=== PATIENT | female | born 1955 | race Caucasian/White ===

== ENCOUNTER → 2017-06-07 | Outpatient (CLI) | payer OTHER ==
[~2017-06-07] MED LIST: ADVAIR; ADVAIR 250-501 EACH; ADVAIR HFA115 MCG/21 INH; ADVAIRDISKUS; ALBUTEROL INH; ALBUTEROL INH IH; AMBIEN 10 MG TA10 MG PO; ATIVAN0.5 MG PO; AZITHROMYCIN 2250 MG PO; BROVANA15 MCG/2 M INH; CALCITRATE200 MG PO; CALCIUM; CALCIUM PO; CEFTIN500 MG PO; CLONAZEPAM; CLONAZEPAM 1 MG1 M1 PO; DEXILANT60 MG OR; DOXYCYCLINE 10100 MG PO; DUONEB 2.5-0.5 M3 ML INH; HCTZ; HYDROCHLOROTHIA25 M1 PO; HYDROCHLOROTHIA25 M2 PO; HYDROCODONE-AP1 EAC6 PO; IRON PO; KLOR-CON PO; LEVOTHROID150 MC1 PO; LEXAPRO; LEXAPRO 10 MG T10 MG PO; LISINOPRIL2.5 MG PO; LISINOPRIL20 MG PO; MAGNESIUM OXID200 MG PO; MEDROLDOSEPACK PO; MUCINEX TA600 MG/TA2 PO; NASONEX; NASONEX17 GM; NASONEX17 GM NS; NEXIUM40 MG PO; NORCO 5-325 TA1 EACH PO; PERCOCET 5-3251 EACH PO; PERCOCET PO; POTASSIUM; POTASSIUM20 PO; PREDNISONE 10 M10 M1 PO; PREDNISONE 10 M10 MG PO; PREDNISONE 20 M20 MG PO; PRINIVIL20 MG PO; PROVENTIL; PROVENTIL HFA6.7 G1 INH; PULMICORT0.5 MG/2 M IH; ROBAXIN 750 MG750 M1 PO; SINGULAIR 10 MG10 M1; SINGULAIR 10 MG10 M1 PO; SINGULAIR PO; SYNTHROID; SYNTHROID150 MCG PO; VENTOLIN HFA 1818 GM INH; VENTOLIN HFA INH8 GM PO; VERAPAMIL; VERAPAMIL HCL360 MG PO; VICODIN 5-5001 EACH PO; ZPAK PO
== END ==
LOC: M.RAD 12:21
DX: J45.40 Moderate persistent asthma, uncomplicated (principal); J18.9 Pneumonia, unspecified organism; M89.8X1 Other specified disorders of bone, shoulder

== ENCOUNTER → 2018-02-10 | Outpatient (CLI) | payer OTHER | LOC: M.RAD 16:27 | DX: S22.42XA Multiple fractures of ribs, left side, initial encounter for closed fracture (principal); S42.032A Displaced fracture of lateral end of left clavicle, initial encounter for closed fracture; M19.012 Primary osteoarthritis, left shoulder; M19.011 Primary osteoarthritis, right shoulder; M47.812 Spondylosis without myelopathy or radiculopathy, cervical region; M19.042 Primary osteoarthritis, left hand; I51.7 Cardiomegaly; J98.4 Other disorders of lung; X58.XXXA Exposure to other specified factors, initial encounter; Y93.89 Activity, other specified; Y92.89 Other specified places as the place of occurrence of the external cause; Y99.8 Other external cause status ==

== ENCOUNTER → 2018-05-28 | Outpatient (CLI) | payer OTHER ==
[2018-05-28 15:19] LABS: ABSOLUTE BASOPHILS 0.2 thou/uL (0.0-0.2); ABSOLUTE LYMPHOCYTES 1.9 thou/uL (0.8-5.3); ABSOLUTE MONOCYTES 0.8 thou/uL (0.0-1.2); ABSOLUTE NEUTROPHILS 12.4 thou/uL (1.6-8.1); EOSINOPHILS 0.1 %; HEMATOCRIT 38.2 % (37.0-47.0); LYMPHOCYTES 12.4 %; MCH 28.2 pg (26.0-34.0); MCHC 33.9 g/dL (28.0-37.0); MCV 83.1 fL (80.0-100.0); MONOCYTES 5.1 %; MPV 7.1 fl. (7.2-11.1); NUCLEATED RBCS 0 /100WBC; PLATELET COUNT* 353 thou/uL (150-400); POLYS 81.4 %; RDW-CV 13.8 % (10.5-14.5); WBC 15.2 thou/uL (4.0-11.0)
[2018-05-28 15:30] LABS: ALBUMIN 3.9 g/dL (3.4-5.0); CALCIUM 9.4 mg/dL (8.5-10.1); CREATININE 1.1 mg/dL (0.6-1.3); POTASSIUM 3.3 mmol/L (3.5-5.1); TOTAL BILIRUBIN 0.5 mg/dL (<0.1-1.0); TOTAL PROTEIN 7.7 g/dL (6.4-8.2)
== END ==
LOC: M.ULTRA 14:00
PROVIDERS: Internal Medicine
DX: K44.9 Diaphragmatic hernia without obstruction or gangrene (principal); M95.8 Other specified acquired deformities of musculoskeletal system; J02.9 Acute pharyngitis, unspecified; R22.1 Localized swelling, mass and lump, neck; Z88.2 Allergy status to sulfonamides; Z88.1 Allergy status to other antibiotic agents

== ENCOUNTER 2019-12-18 20:42 | Emergency (ER) | payer MEDICARE ==
[~2019-12-18] VITALS: Ht 172.7 cm; Wt 83.9 kg
[2019-12-18 21:04] LABS: ABSOLUTE BASOPHILS 0.1 thou/uL (0.0-0.2); ABSOLUTE EOSINOPHILS 0.2 thou/uL (0.0-0.7); ABSOLUTE LYMPHOCYTES 3.5 thou/uL (0.8-5.3); ABSOLUTE MONOCYTES 0.5 thou/uL (0.0-1.2); ABSOLUTE NEUTROPHILS 4.3 thou/uL (1.6-8.1); BASOPHILS 1.4 %; EOSINOPHILS 1.8 %; HEMATOCRIT 37.5 % (37.0-47.0); HEMOGLOBIN 12.9 gm/dL (12.0-15.0); LYMPHOCYTES 40.8 %; MCHC 34.6 g/dL (28.0-37.0); MCV 83.8 fL (80.0-100.0); MONOCYTES 5.6 %; MPV 6.5 fl. (7.2-11.1); NUCLEATED RBCS 0 /100WBC; PLATELET COUNT* 375 thou/uL (150-400); POLYS 50.4 %; RBC 4.47 mil/uL (4.20-5.00); RDW-CV 13.4 % (10.5-14.5); WBC 8.5 thou/uL (4.0-11.0)
[2019-12-18 21:10] LABS: CALCIUM 8.6 mg/dL (8.5-10.1); CREATININE 0.8 mg/dL (0.6-1.3); POTASSIUM 3.2 mmol/L (3.5-5.1)
[2019-12-18 21:11] LABS: APTT 28.2 Seconds (25.0-31.3); PROTIME 10.3 Seconds (9.20-11.50)
[2019-12-18 21:15] LABS: ALBUMIN 4.5 g/dL (3.4-5.0); TOTAL BILIRUBIN 0.3 mg/dL (<0.1-1.0); TOTAL PROTEIN 7.8 g/dL (6.4-8.2)
[2019-12-18] MEDS ORDERED: NORCO 5-325 TA1 EAC2 PO (21:44)
[2019-12-18 22:00] VITALS: BP 158/75
== END 2019-12-18 22:00 | disposition home or self-care (01) ==
LOC: M.ERS 20:42
PROVIDERS: Family Medicine
DX: S00.03XA Contusion of scalp, initial encounter (principal); F10.129 Alcohol abuse with intoxication, unspecified; Y90.8 Blood alcohol level of 240 mg/100 ml or more; J45.909 Unspecified asthma, uncomplicated; K21.9 Gastro-esophageal reflux disease without esophagitis; I10 Essential (primary) hypertension; Z88.1 Allergy status to other antibiotic agents; Z91.018 Allergy to other foods; Z98.890 Other specified postprocedural states

== ENCOUNTER → 2020-05-03 | Outpatient (CLI) | payer MEDICARE ==
[~2020-05-03] MED LIST changes: +NORCO 5-325 TA1 EAC2 PO
== END ==
LOC: M.RAD 04-26 16:07
PROVIDERS: ATTEND Internal Medicine
DX: Z12.31 Encounter for screening mammogram for malignant neoplasm of breast (principal); M85.88 Other specified disorders of bone density and structure, other site; K44.9 Diaphragmatic hernia without obstruction or gangrene; F17.200 Nicotine dependence, unspecified, uncomplicated; Z78.0 Asymptomatic menopausal state

== ENCOUNTER → 2020-06-23 | Outpatient (CLI) | payer MEDICARE | LOC: M.RAD 15:42 | PROVIDERS: ATTEND Internal Medicine | DX: M51.36 Other intervertebral disc degeneration, lumbar region (principal); M54.40 Lumbago with sciatica, unspecified side; M47.816 Spondylosis without myelopathy or radiculopathy, lumbar region; M48.061 Spinal stenosis, lumbar region without neurogenic claudication ==

== ENCOUNTER → 2020-07-19 | Outpatient (CLI) | payer MEDICARE | LOC: M.ULTRA 07-14 14:38 | PROVIDERS: ATTEND Internal Medicine | DX: R42 Dizziness and giddiness (principal); I10 Essential (primary) hypertension; R09.89 Other specified symptoms and signs involving the circulatory and respiratory systems ==

== ENCOUNTER → 2020-11-10 | Outpatient (CLI) | payer MEDICARE ==
--- NOTE | 2020-11-10 17:27 | CARDNUC ---
[place] [address] CARDIAC NUCLEAR IMAGING REPORT Name: NICOLE ADAN Room: [facility]#: [id number] Admission: 11/10/20 Attend Phys: Melissa Trammell, Discharge: Date of : 53 Date of Service: 11/10/20 1727 Report #: [id number] THIS REPORT FOR: cc: Elías Dixon MD, Meng MD Liston, Michael J. MD [facility] ~ APPROVED REPORT Imaging Protocol: Rest Tc-99m/Stress Tc-99m 1 day Study performed: 11/10/2020 12:30:00 Indication: Abnormal EKG, Chest pain, Dyspnea Patient Location: Out-Patient Stress Nurse: MARISOL Monge Tech:JHONATAN Elkins Ht: 5 ft 5 in Wt: 182 lbs BSA: 1.90 m2 BMI: 30.28 Medical History Medical History: HTN, Smoking Medications: hcta, klor-con- lisinopril metoprolol, verapamil Allergies: sulfa levaquin Cardiac Risk Factors: Age, Current Smoker, DM, FHX of CAD, HTN Exercise History: Physically active Meds Held (24 hrs): metoprolol Resting Data Rest SPECT myocardial perfusion imaging was performed in supine position 30 minutes following the intravenous injection of 10.8 mCi of Tc-99m Sestamibi. Time of rest injection: 1300 Date: 11/10/2020 The images were gated to evaluate regional wall motion and calculate left ventricular ejection fraction. Administration Route: IV Exercise Stress At peak stress, the patient was injected intravenously with 31.0mCi of Tc-99m Sestamibi. Time of stress injection: 1450 Date: 11/10/2020 Administration Route: IV Gated Stress SPECT was performed 30 [place] [address] CARDIAC NUCLEAR IMAGING REPORT Name: NICOLE ADAN Room: [facility]#: [id number] Admission: 11/10/20 Attend Phys: JanakOsmel Brown Jp, Discharge: Date of : 53 Date of Service: 11/10/20 1727 Report #: [id number] injection. The images were gated to evaluate regional wall motion and calculate left ventricular ejection fraction. Prone imaging was performed. Stress Test Details Stress Test: Exercise stress testing was performed using a Juan Pablo protocol. HR Max Heart Rate (APMHR): 154 bpm Resting HR: 68 bpm Target HR (85% APMHR): 130 bpm Max HR Achieved: 145 bpm % of APMHR: 94 Recovery HR: 91 bpm BP Resting BP: 139/92 mmHg Max BP: 211/83 mmHg Recovery BP: 156/78 mmHg ECG Resting ECG: Sinus Rhythm Stress ECG: Sinus Tachycardia ST Change: None Arrhythmia: None Recovery ECG: Sinus Rhythm Recovery ST Change: None Recovery Arrhythmia: Unifocal PVCs Clinical Reason for Termination: Maximal effort, Dyspnea Exercise duration: 8 min 45 sec Exercise capacity: 10.16 METs Functional Aerobic Impairment 90% The patient tolerated standard Juan Pablo protocol exercise without significant cardiac symptoms. The patient exhibited good exercise tolerance. Stress ECG Conclusion Twelve-lead EKG prior to exercise show sinus rhythm with no significant ST segment or T wave abnormality. EKGs obtained during and post exercise show sinus rhythm and sinus tachycardia with no significant ST segment or T wave changes when compared to baseline. The patient had frequent unifocal premature ventricular contractions in [place] [address] CARDIAC NUCLEAR IMAGING REPORT Name: NICOLE ADAN Room: [facility]#: [id number] Admission: 11/10/20 Attend Phys: Melissa Housegs, Discharge: Date of : 53 Date of Service: 11/10/20 1727 Report #: [id number] Study: Good Artifact: No artifact Study Data At rest, the left ventricular ejection fraction was 61%.. Post stress, the left ventricular ejection was 74%.. TID = 0.72. Perfusion Perfusion images obtained at rest and post exercise stress show uniform uptake of the radioisotope throughout the myocardium. There were no defects to suggest infarct or ischemia. Wall Motion Normal left ventricular wall motion. Nuclear Conclusion ECG Findings: negative for ischemia Clinical Findings: negative for ischemia Nuclear Findings: negative for ischemia Exercise Capacity: normal Left Ventricular Function: normal Risk Study: low Perfusion images show no defect to suggest infarct or ischemia. Left ventricular systolic function appears normal on gated studies. This is a low risk study. <Conclusion> Twelve-lead EKG prior to exercise show sinus rhythm with no significant ST segment or T wave abnormality. EKGs obtained during and post exercise show sinus rhythm and sinus tachycardia with no significant ST segment or T wave changes when compared to baseline. The patient had frequent unifocal premature ventricular contractions in recovery. <ELECTRONICALLY SIGNED> By: Dayton Carcamo MD, FACC 11/10/201726 26 26 Dayton Carcamo MD, FACC /INF
== END ==
LOC: M.NUC 11-03 10:07
PROVIDERS: ATTEND Internal Medicine
DX: R07.9 Chest pain, unspecified (principal); R94.31 Abnormal electrocardiogram [ECG] [EKG]

== ENCOUNTER → 2021-05-22 | Outpatient (CLI) | payer MEDICARE | LOC: M.CT 09:00 | PROVIDERS: ATTEND Internal Medicine | DX: R79.89 Other specified abnormal findings of blood chemistry (principal); R07.89 Other chest pain; R06.02 Shortness of breath; M41.84 Other forms of scoliosis, thoracic region; M51.34 Other intervertebral disc degeneration, thoracic region ==